=== PATIENT | female | born 1990 | race Two or more races ===

== ENCOUNTER 2017-06-21 18:02 | Emergency (ER) | payer OTHER ==
[~2017-06-21] VITALS: Ht 170.2 cm; Wt 98.8 kg
[2017-06-21] MEDS ORDERED: ONDANSETRON 2MG/ML, 2ML IVPush ONE (18:30)
[2017-06-21] MEDS ORDERED: SODIUM CHLORIDE 0.9% 1,000ML IVBOLUS ONE (18:30)
[2017-06-21] MEDS ORDERED: LISI-170 PO (18:47)
[2017-06-21] MEDS ORDERED: morphine SULFATE 10 MG/ML, 1ML ONE (18:53)
[2017-06-21] MEDS ORDERED: ONDANSETRON 2MG/ML, 2ML ONE (18:53)
[2017-06-21] MEDS ORDERED: MORPHINE SULFATE 4 MG/ML, 1ML IVPush PRN (19:00)
[2017-06-21 19:04] LABS: HEMATOCRIT 35.7 % (34.6-47.8); HEMOGLOBIN 11.4 g/dL (11.7-16.4); WHITE BLOOD COUNT 5.9 x10^3/uL (3.4-10)
[2017-06-21 19:05] LABS: BLOOD UREA NITROGEN 23 mg/dL (7-18)
[2017-06-21 19:06] LABS: ANISOCYTOSIS 1+; MICROCYTOSIS 1+; OVALOCYTES 1+
[2017-06-21 19:08] LABS: ASPARTATE AMINO TRANSFERASE 14 U/L (15-37)
[2017-06-21 21:48] VITALS: BP 129/100
== END 2017-06-21 21:49 | disposition home or self-care (01) ==
LOC: ED 20:51
DX: R11.2 Nausea with vomiting, unspecified (principal); R10.84 Generalized abdominal pain; I10 Essential (primary) hypertension
CPT/HCPCS: 36415; 80053; 81001; 83690; 84703; 85025; 96361; 96374; 96375; 99285; J2405; J7030

== ENCOUNTER 2017-10-04 14:33 | Emergency (ER) | payer OTHER ==
[~2017-10-04] VITALS: Ht 170.2 cm; Wt 93.0 kg
[~2017-10-04 14:33] MED LIST: LISI-170 PO
[2017-10-04 15:36] LABS: ANION GAP 10 mmol/L (5-15); CALCIUM 8.8 mg/dL (8.5-10.1); CHLORIDE 101 mmol/L (98-107)
[2017-10-04 15:42] LABS: ALANINE AMINOTRANSFERASE 15 U/L (12-78); ALKALINE PHOSPHATASE 77 U/L (45-117); BILIRUBIN,TOTAL 0.4 mg/dL (0.2-1.0); CREATININE 2.39 mg/dL (0.55-1.02); TOTAL PROTEIN 8.9 g/dL (6.4-8.2)
[2017-10-04 15:49] LABS: MEAN CORPUSCULAR HEMOGLOBIN 23.5 pg (27.0-34.8); MEAN CORPUSCULAR HGB CONC 31.7 g/dL (32.4-35.8); MEAN CORPUSCULAR VOLUME 74.1 fL (80-100); MEAN PLATELET VOLUME 7.8 fL (7.4-10.4); PLATELET COUNT 474 x10^3/uL (130-400); RED BLOOD COUNT 4.38 x10^6/uL (3.82-5.3)
[2017-10-04 16:07] LABS: BASOPHILS # (AUTO) 0.02 x10^3/uL (0-0.1); BASOPHILS % (AUTO) 0 % (0-1); EOSINOPHILS # (AUTO) 0.15 x10^3/uL (0-0.4); EOSINOPHILS % (AUTO) 2 % (1-7); LYMPHOCYTES % (AUTO) 18 % (22-44); MD SCAN; MONOCYTES # (AUTO) 0.34 x10^3/uL (0.2-0.8); MONOCYTES % (AUTO) 5 % (2-9); NEUTROPHILS # (AUTO) 5.09 x10^3/uL (1.8-6.8); NEUTROPHILS % (AUTO) 75 % (42-75)
[2017-10-04] MEDS ORDERED: HYDROmorphone 2 MG/ML, 1ML ONE (17:30)
[2017-10-04] MEDS ORDERED: HYDROmorphone 1 MG/ML, 1ML IM ONE (17:30)
[2017-10-04 19:18] VITALS: BP 124/72
== END 2017-10-04 19:20 | disposition home or self-care (01) ==
LOC: ED 19:02
DX: D25.1 Intramural leiomyoma of uterus (principal)
CPT/HCPCS: 36415; 76830; 80053; 84703; 85025; 96372; 99285; J1170